=== PATIENT | female | born 1955 | race Caucasian/White ===

== ENCOUNTER 2017-02-13 14:51 | Inpatient (IN) | payer MEDICARE, OTHER ==
--- NOTE | ~2017-02-13 | CN ---
Consultation Report [facility] [address] [place]. [address] NAME: FELICIATS REAGAN : 55 STATUS : ADM IN PAT#: [id number] AGE: 61 ADM/REG DATE : 02/13/17 MR#: [id number] REPORT SERV DATE: 02/14/17 DICTATED BY: ISAIAS DENNIS DATE: 02/14/17 REPORT STATUS : Draft TRANSCRIBED BY: MODL DATE: 02/14/17 CONSULTATION NOTE DATE OF CONSULTATION: 02/14/2017 CHIEF COMPLAINT: Dyspnea. HISTORY OF PRESENT ILLNESS: Mrs. Felicitas Reagan is a morbidly obese 61-year-old white female with a past medical history significant for valvular heart disease, status post AVR- MVR, severe restrictive lung disease, and clinical asthma, who presents to [facility]'s Emergency Room with complaints of dyspnea. It should be noted that, Mrs. Reagan was hospitalized as recently as November of this year when she was seen by our Pulmonary Service. The patient has had a difficult course in the short interim. Mrs. Reagan is very familiar to our pulmonary team. She is currently being followed by Dr. Pérez Porras for outpatient pulmonary needs. She was seen as recently as 01/24/2017 as a followup from her recent hospitalization. During that time, she was doing fairly well on her chronic oxygen supplementation at 4 L. She was compliant with her asthma medications, which included albuterol, montelukast, and Symbicort of which she is compliant. The patient did have a previous assessment for obstructive sleep apnea, which did suggest nocturnal hypoxemia, but no clear indication of obstructive sleep apnea. There was a concern for obesity hypoventilation during this study. The patient describes herself as a never smoker. She describes her exercise tolerance as being exceedingly limited. She is only able to ambulate around her home before experiencing some degree of shortness of breath. Again, Mrs. Reagan was seen in November of this year by our pulmonary team. There was a concern for pulmonary hypertension, given some findings on echocardiogram. Right-sided pressures are estimated to be in the 30s, was later found that she had atrial fibrillation at this time and eventually underwent cardioversion. She did eventually transitioned home after her condition improved. More recently, she has become more short of breath even at rest. She occasionally checks her on oxygen and was noted to be in the high 70s with ambulation. This became concerning enough that she presented to [facility]'s Emergency Room. Upon arrival, she was found to be normotensive as well as afebrile. Her oxygen was 98% on 4 L. She did undergo some blood work, which demonstrated a BNP of 227.2. White blood cell count was 9300. She did have a chest x-ray, which suggested maybe some degree of pulmonary edema. The patient did receive some diuretics. She has also been assessed by Cardiology. Given that there is some concern with her dyspnea being multifactorial, she has been referred to the Pulmonary Service for further assessment. Currently, the patient is on her baseline 4 L with an oxygenation of 98%. She denies any dyspnea at rest. She does state with any exertion that she does have worsening dyspnea. She has not been checking her oxygenation sats when she does ambulate within the room. She Consultation Report [facility] [address] [facility] [place]. [address] NAME: FELICITAS REAGAN : 55 STATUS : ADM IN [facility]#: [id number] AGE: 61 ADM/REG DATE : 02/13/17 MR#: [id number] REPORT SERV DATE: 02/14/17 DICTATED BY: ISAIAS DENNIS DATE: 02/14/17 REPORT STATUS : Draft TRANSCRIBED BY: BASSAM DATE: 02/14/17 is not wheezing today. She is not coughing nor producing any purulent sputum. She has had pneumonia in the past. She does have known severe restrictive lung disease as well as clinical asthma. The patient does have extensive cardiac disease including valvular disease, for which she has undergone surgical repair. She does have known dyslipidemia. She currently denies any murmurs, angina, or palpitations. In regard to constitutional symptoms, she has had no fever, chills, nausea, vomiting, chest pain, abdominal pain. She has no worsening lower extremity edema. PAST MEDICAL HISTORY: 1. Coronary artery disease, status post bypass. 2. Valvular heart disease, status post aortic and mitral valve replacement. 3. Diabetes mellitus. 4. Clinical asthma. 5. Dyslipidemia. 6. DVT, currently on Xarelto. 7. Chronic venous stasis. 8. Hypothyroidism, on replacement therapy. 9. Morbid obesity. 10.Mild pulmonary hypertension. PAST SURGICAL HISTORY: 1. Coronary artery bypass graft surgery. 2. Aortic and mitral valve replacement. 3. Left rotator cuff surgery. 4. Thyroidectomy. 5. Left breast biopsy. FAMILY HISTORY: The patient denies a family history of lung disease. SOCIAL HISTORY: The patient is . She has one child, who is in good health. She previously worked in education. She denies any recent exposures to dust, silica, or asbestos. TOBACCO/ALCOHOL: As previously mentioned, the patient describes herself as a never smoker. MEDICATIONS: 1. Tylenol 325 mg. 2. DuoNebs. 3. Xanax 0.5 mg. 4. Atorvastatin 80 mg. 5. Symbicort. 6. Bumex 2 mg. Consultation Report [address] [place]. [address] NAME: FELICITAS REAGAN : 55 STATUS : ADM IN [facility]#: [id number] AGE: 61 ADM/REG DATE : 02/13/17 MR#: [id number] REPORT SERV DATE: 02/14/17 DICTATED BY: ISAIAS DENNIS DATE: 02/14/17 REPORT STATUS : Draft TRANSCRIBED BY: BASSAM DATE: 02/14/17 7. Fluoxetine 40 mg. 8. Insulin. 9. Levothyroxine 50 mcg. 10.Mirabegron 50 mg. 11.Montelukast 10 mg. 12.Pramipexole 1 mg. 13.Promethazine 25 mg. 14.Rivaroxaban 20 mg. 15.Sotalol 80 mg. 16.Spironolactone 25 mg. ALLERGIES: PENICILLIN. SHE HAS NUMEROUS ADVERSE REACTIONS NOTATED IN THE CHART. REVIEW OF SYSTEMS: A complete review of systems was performed with pertinent positives and negatives contained within the body of the HPI. PHYSICAL EXAMINATION: VITAL SIGNS: Blood pressure is 110/54, heart rate is 55, T-max is 98.5, respiratory rate is 18, SpO2 is 98% on 4 L. GENERAL: The patient is a pleasant, well-nourished/well-developed female, who is not currently exhibiting any signs of acute distress. The patient is morbidly obese. Skin: Skin with appropriate texture and turgor. No rashes, lesions, or ulcers. Nails are clear without cyanosis or clubbing. HEENT: Head: Skull is normocephalic/atraumatic. Facies symmetric. No masses or lesions. Eyes: Sclera anicteric, conjunctiva pink without exudates. Extra ocular movements intact. Pupils are equal, round, reactive to light. Ears: Auricles and tragus without pain to palpation. Hearing is grossly intact. Nose: Bilateral nasal patency. Sinuses without tenderness upon palpation. Throat: Complete dentition in good repair. Lips, oral mucosa, tongue, palate, and pharynx pink and moist without lesions. Uvula rises equally on phonation. Tongue midline without deviation. Mallampati class 3-4. NECK: Neck supple. Trachea midline. No cervical lymphadenopathy appreciated. Significant redundant tissue. THORAX/LUNGS: Thorax is symmetric with equal chest rise. Very diminished throughout. No rales, wheezes, rhonchi. CARDIOVASCULAR: Regular rate and rhythm. No murmurs, rubs, or gallops. Anterior chest without thrills, heaves, or lifts. ABDOMEN: Soft. Non-distended, non-tender. Active bowel sounds in all four quadrants. No hepatosplenomegaly noted. PERIPHERAL VASCULAR: No edema. No varicosities, open sores, ulcerations, or phlebitis. 2+ pulses in radial and dorsalis pedis. Chronic stasis changes appreciated. MUSCULOSKELETAL: Full AROM and PROM in all joints. No evidence of erythema, deformity, or crepitus. NEUROLOGIC: CN II - XII grossly intact. Good muscle bulk and tone bilaterally. Strength Consultation Report [address] [place]. [address] NAME: FELICITAS REAGAN : 55 STATUS : ADM IN [facility]#: [id number] AGE: 61 ADM/REG DATE : 02/13/17 MR#: [id number] REPORT SERV DATE: 02/14/17 DICTATED BY: ISAIAS DENNIS DATE: 02/14/17 REPORT STATUS : Draft TRANSCRIBED BY: MODL DATE: 02/14/17 5/5 throughout. PSYCHIATRIC: Patient demonstrates good judgment and insight. Pt is A&O x 3. ACCESSARY DATA: Reveals white blood cell count of 9300, hemoglobin and hematocrit 12.4 and 38.3, procalcitonin is negative at 0.05. BNP is 268.6. Chest x-ray suggests some degree of pulmonary edema. IMPRESSION: 1. Dyspnea-multifactorial. 2. Chronic hypoxemic respiratory failure. 3. Severe restrictive lung disease. 4. Clinical asthma. 5. Mild volume overload. 6. Valvular heart disease, status post aortic valve and mitral valve replacement. 7. Mild pulmonary hypertension. PLAN: 1. In regard to the patient's dyspnea, this is likely secondary to her morbid obesity, overall deconditioning, severe restrictive lung disease, asthma, mild volume overload, and less likely very mild pulmonary hypertension. In regard to the patient's oxygenation, she is now currently at baseline. 2. In regard to the patient's asthma, we will continue her home medications as there is no clear indication that she is having an exacerbation. 3. The aforementioned impression and plan has been discussed with Dr. Harris, who will follow further recommendations. We thank you for this consult and look forward to participating in the care of Mrs. Felicitas Reagan. GBS/MODL Isaias Dennis PA-C / [id number] CC: MD Jenny Soto
--- NOTE | ~2017-02-13 | PRECARD ---
H&P [facility] [address] [place]. [address] NAME: FELICITAS REAGAN : 55 STATUS : REG ER PAT#: [id number] AGE: 61 ADM/REG DATE : 02/13/17 MR#: [id number] REPORT SERV DATE: 02/13/17 DICTATED BY: DEJON PYLE DATE: 02/13/17 REPORT STATUS : Draft TRANSCRIBED BY: BASSAM DATE: 02/13/17 DATE OF ADMISSION: 02/13/2017 Ms. Felicitas Reagan is a 61-year-old woman who comes to the emergency room with a three-to- four day history of dyspnea. Cardiology is consulted because of a troponin level of 0.08. Ms. Reagan has had bioprosthetic aortic valve replacement and mitral valve replacement in April 2013. She also had resection of a subaortic membrane. At that time, she had a single vein graft placed to the PDA. Her history is also remarkable for diabetes, DVT, hypertension, hyperlipidemia, and paroxysmal atrial fibrillation. She had been on sotalol 80 b.i.d. for the atrial fibrillation. She did well until the last 3-4 days. In the last 3 to 4 days, she describes decreased exercise tolerance, orthopnea, and PND. She describes leg edema. She actually denies any chest pain. She has had no bleeding. She has had no stroke or stroke-like symptoms. She came to the emergency room with these symptoms. Heart rate has been 40 to 50. Her systolic pressure has been about 120. PAST MEDICAL HISTORY: Diabetes, DVT, mixed, hyperlipidemia, hypertension, depression, obesity, paroxysmal atrial fibrillation, aortic, mitral valve replacement. Bypass single- vessel. Vein graft to the right. SOCIAL HISTORY: Denies alcohol and tobacco. FAMILY HISTORY: Noncontributory. REVIEW OF SYSTEMS: Complete review of systems obtained, pertinent negative and unremarkable except as noted above. All systems addressed. PHYSICAL EXAMINATION: VITAL SIGNS: Blood pressure is about 125/70, heart rate about 50, and temperature 97.6. GENERAL: She appears comfortable, flat, in no distress, fully alert and oriented. HEENT: No xanthelasma; lips without cyanosis LUNGS: Clear to auscultation, no wheezes, rales or rhonchi; good breath sounds. COR: No JVD or hepatojugular reflux, no murmurs, rubs or gallops, impulse mid clavicular line without carotid or abdominal bruits; normal S1 and S2. ABDOMEN: Bowel sounds positive, normal activity, without tenderness, masses or hepatosplenomegaly. EXTREMITIES: She has trace edema. SKIN: Normal turgor. MUSCULOSKELETAL: Normal muscle strength, without kyphosis/scoliosis. H&P [address] [address] NAME: FELCIITAS REAGAN : 55 STATUS : REG ER PAT#: [id number] AGE: 61 ADM/REG DATE : 02/13/17 MR#: [id number] REPORT SERV DATE: 02/13/17 DICTATED BY: DEJON PYLE DATE: 02/13/17 REPORT STATUS : Draft TRANSCRIBED BY: BASSAM DATE: 02/13/17 NEURO/PSYCH: Alert and oriented times 4, no apparent anxiety or depression. DATA: Telemetry demonstrates sinus bradycardia, occasional PVCs. Heart rate about 45 to 50. White count 9.3, hematocrit 38.3, and platelet count is 117,000. BUN of 16, creatinine 1.02. Her troponin 0.08. BNP is 227. EKG, sinus bradycardia at 45 with possible attempts at left anterior fascicular block, possible LVH. ASSESSMENT: Ms. Felicitas Reagan is a 61-year-old woman with history of diabetes, hypertension, prior bioprosthetic mitral and aortic valve replacement, with single vein graft to the PDA. She has history of atrial fibrillation. She is currently in sinus rhythm, with sinus bradycardia. Her heart rate is low, she has had no bradycardia. Her troponin level is minimally elevated at 0.08. Her BNP level is also elevated, though only 227. We are still collecting her medication list. Her outpatient records indicate she had been on sotalol 80 b.i.d. I will initially hold the sotalol, we may need to stop that completely versus decrease the dose to 80 b.i.d. I will review these medications once they are available and consider adjusting her other medications. PLAN: 1. Serial biomarkers, doubt acute coronary syndrome. 2. Hold the sotalol for now. 3. Continue anticoagulation, her INR is 2.6. I would discontinue heparin, I do not think she has had an acute coronary syndrome, her troponin was only 0.08. 4. Further recommendations depending upon her clinical course. TAPAN/BASSAM Dejon Pyle M.D. / [id number] CC: LYNDSEY PACHECO
--- NOTE | ~2017-02-13 | EEG ---
Electroencephalogram [facility] [address] [facility] [place]. [address] NAME: LISA REAGAN : 55 STATUS : ADM IN PAT#: [id number] AGE: 61 ADM/REG DATE : 02/13/17 MR#: [id number] REPORT SERV DATE: 02/17/17 DICTATED BY: DATE: REPORT STATUS : Draft TRANSCRIBED BY: MODL DATE: 02/17/17 NEUROLOGY EEG REPORT CLINICAL INDICATIONS: Encephalopathy and confusion. DESCRIPTION: This EEG was performed using 10/20 electrode placement system. During the EEG study, symmetric background activity was noted with predominant occipital rhythm of roughly 10 hertz. Photic stimulation was performed with appropriate driving response. Hyperventilation was not performed due to the patient's underlying respiratory issues. The patient achieved drowsy as well as stage I and II sleep with appropriate sleep spindles. No focal abnormalities, seizure activity, or seizure discharge was noted during the EEG evaluation. INTERPRETATION: This EEG study obtained during awake, drowsy as well as stage I and II sleep may be considered within normal limits. No focal abnormalities, seizure activity, or seizure discharge was otherwise seen clinical correlation is recommended. [facility]/MODL Ryland Maciel MD / [id number] CC: Solitario De La Torre MD
--- NOTE | ~2017-02-13 | DS ---
Discharge Summary [place] [address] [place]. [address] NAME: LISA REAGAN : 55 STATUS : DIS IN PAT#: [id number] AGE: 61 ADM/REG DATE : 02/13/17 MR#: [id number] REPORT SERV DATE: 02/20/17 DICTATED BY: WENDY MELO DATE: 02/19/17 REPORT STATUS : Draft TRANSCRIBED BY: MODOrlin DATE: 02/19/17 ADMISSION DATE: 02/13/2017 DISCHARGE DATE: 02/19/2017 CONSULTING PHYSICIANS: 1. Ryland Maciel MD and Timothy Vazquez MD, for Neurology. 2. Rehan Muniz M.D., for Cardiology. 3. Pérez Porras M.D. for Pulmonary. FINAL DIAGNOSES: 1. Acute on chronic diastolic congestive heart failure, status post acute respiratory failure. 2. Peripheral arterial disease with history of coronary artery bypass grafting. 3. Status post pulmonary edema. 4. History of asthma. 5. Obstructive sleep apnea. 6. Restrictive lung disease. 7. Status post encephalopathy with visual hallucinations. 8. History of DVT. 9. Aortic and mitral valve replacement. 10.Atrial fibrillation with history of bradycardia. 11.Diabetes. 12.Hypothyroidism. 13.Anemia of chronic disease. 14.Anxiety and depression. DIAGNOSTIC EXAMS: 1. EEG showing normal findings, no focal abnormalities, seizure activity, or seizure discharge. 2. Chest x-ray, cardiac surgical changes, diffuse bilateral interstitial opacity, likely edema, minimal bibasilar atelectasis, and/or pleural fluid. 3. Repeat chest x-ray showing continued venous congestion and mild diffuse interstitial edema with bilateral perihilar atelectasis. Findings are similar to the prior examination. Stable mild enlargement of the cardiac silhouette with evidence of previous coronary artery bypass grafting and heart valve replacement. 4. CAT scan of the brain, mild cortical volume loss and findings compatible with mild chronic deep white matter ischemic change. No acute intracranial abnormality. Mild right ethmoid sinus disease. 5. CTA of the brain, 20% to 30% stenosis, origin left internal carotid artery. Calcific plaque at the origin of the left vertebral artery. Otherwise, the carotid and vertebral arteries appear widely patent. Heavy atherosclerotic calcification in the intracranial portion of the internal carotid arteries without significant stenosis. No high-grade stenosis or large vessel occlusion. Mild cortical volume loss compatible with mild chronic deep white matter ischemic change. Venous congestion and pulmonary edema compatible with patient's known congestive failure changes seen on recent chest radiograph. Discharge Summary [place] [address] [place]. [address] NAME: LISA REAGAN : 55 STATUS : DIS IN PAT#: [id number] AGE: 61 ADM/REG DATE : 02/13/17 MR#: [id number] REPORT SERV DATE: 02/20/17 DICTATED BY: WENDY MELO DATE: 02/19/17 REPORT STATUS : Draft TRANSCRIBED BY: BASSAM DATE: 02/19/17 6. MRI of the brain, normal findings. HOSPITAL COURSE: Please refer to the H and P done by Dr. Melgoza dated on 02/12/2017. Briefly, this is a 61-year-old female, who comes in for shortness of breath. The patient has an extensive past medical history including CAD with CABG, aortic and mitral valve repair and replacement, asthma, restrictive lung disease, hypertension, diastolic congestive heart failure, diabetes, and DVTs. The patient had her sotalol recently increase, and she comes in to the emergency room with shortness of breath and low heart rate. Chest x-ray shows mild congestive heart failure changes, she was given her regular diuretics, and continued her sotalol. She remained bradycardic, but she was able to diurese. The creatinine, however, increased. We got Cardiology involved. They are assuming that the patient might not be very compliant with her diuretics as with the same dose her creatinine increased. They lowered down the sotalol and signed off. The patient's heart rate went up with the lowering of the sotalol, and she continued to diurese with decrease in the Bumex; she is now taking only 1 mg instead of 2 mg, and the creatinine actually improved from 1.4 down to 1.23 on discharge. Meanwhile, we got Pulmonary involved. From their point of view, the patient is actually on her baseline, they did not change the medication. However, while she was here, she had an episode of encephalopathy with visual hallucinations. We got Neurology involved. We did the above tests, and we found no evidence of organic brain disease. This could be secondary to the steroids or other medications, however, for the last 24 hours, she does not have any visual hallucinations anymore and Neurology signed off. She actually has a followup with Dr. Lance on 03/17/2017. The patient's vitals remained stable. She is wanting to go home, so we will be discharging her with the above diagnosis. She will be following up with [facility] in one to two weeks. Follow up with [facility], Dr. Lance, on 03/17/2017. Follow up with [facility], Dr. Ray Muniz, in three to four weeks and Pulmonary, Dr. Porras in 1 to 2 months. She will be on the following medications: Xanax 0.5 mg at bedtime, Lipitor 80 mg at bedtime, Bumex down to 1 mg a day, Prozac 40 mg twice a day, Lantus 50 units at bedtime, insulin aspart per sliding scale, Synthroid 50 mcg a day, Singulair 10 mg at bedtime, Myrbetriq 50 mg a day, Mirapex 1 mg at bedtime, Metamucil 1 packet a day, Xarelto 20 mg at bedtime, Betapace down to 40 mg twice, Aldactone 25 mg twice a day, DuoNebs inhaled every six hours p.r.n., ProAir two puffs four times a day, Symbicort 160/4.5 two puffs twice a day, Phenergan 25 mg a day p.r.n., Tylenol p.r.n., and probiotic ad josé. This has been explained to the patient. I also reiterated as per Neurology recommendations that she cannot drive. I explained that to her at length, she said it is going to be difficult as she is the only one who drives in her home, so I have to tell her that she has friends and family which she needs to rely on until she follows up with Dr. Lance and clears her from the Neurology point of view. TIME SPENT: 35 minutes. PRAVIN/BASSAM Discharge Summary [address] [place]. [address] NAME: LISA REAGAN : 55 STATUS : DIS IN [facility]#: [id number] AGE: 61 ADM/REG DATE : 02/13/17 MR#: [id number] REPORT SERV DATE: 02/20/17 DICTATED BY: WENDY MELO DATE: 02/19/17 REPORT STATUS : Draft TRANSCRIBED BY: BASSAM DATE: 02/19/17 Wendy Melo M.D. / [id number] CC: Trina Valero
--- NOTE | ~2017-02-13 | HP ---
History And Physical [place] [address] [facility] [place]. [address] NAME: LISA REAGAN : 55 STATUS : ADM IN [facility]#: [id number] AGE: 61 ADM/REG DATE : 02/13/17 MR#: [id number] REPORT SERV DATE: 02/13/17 DICTATED BY: TAMMY BURGER DATE: 02/13/17 REPORT STATUS : Draft TRANSCRIBED BY: MODL DATE: 02/13/17 DATE OF ADMISSION: 02/13/2017 CHIEF COMPLAINT: Bradycardia, shortness of breath, and cough. HISTORY OF PRESENT ILLNESS: The patient is a 61-year-old female. She has an extensive past medical history. It includes coronary artery disease, status post CABG; aortic and mitral valve repair and replacement; asthma; diastolic CHF; hypertension; diabetes; history of DVTs, on chronic anticoagulation; atrial fib; hypothyroidism; iron, B12, and folate deficiencies with chronic anemia. She presents today with low heart rate and shortness of breath. The patient states she was approximately three weeks ago at her steelworker's office, apparently there was some elevated heart rate noted and her sotalol was increased from 40 b.i.d. to 80 b.i.d. She states over the past 24 hours or so, she has noted heart rates in the 30s and 40s. She contacted her steelworker and was sent to the emergency room for evaluation. In addition, she has noticed some shortness of breath and nonproductive cough, which she has had in the past with her previous heart problems. She did not have any accompanying purulent sputum, fever, chest pain, or palpitations to accompany this. On evaluation in the emergency department, she was noted to be bradycardic. She was noted to have a mild troponin bump of 0.08. Cardiology is already consulted on the patient. She is being admitted for further treatment of her bradycardia and shortness of breath. PAST MEDICAL HISTORY: As covered above. PAST SURGICAL HISTORY: She has had a CABG, valve replacement, rotator cuff, thyroidectomy, and breast biopsy. CURRENT MEDICATIONS: Tylenol 325 one to two per day, DuoNeb inhaler, albuterol inhaler, Xanax 0.5 at bedtime, Lipitor 80, Symbicort 160/4.5 two puffs twice a day, Bumex 2 mg, Prozac 40 b.i.d., NovoLog flex pen, Lantus 44 at bedtime, Synthroid 50, Myrbetriq 50, probiotic, Singulair 10, Mirapex 1 at bedtime, Phenergan 25, Metamucil, Xarelto 20, Betapace 80 b.i.d., and Aldactone 25 b.i.d. ALLERGIES: TO PENICILLIN, COUMADIN, HEPARIN ANALOGS, IRON, B12, FOLIC ACID, ADHESIVE TAPE, AND LEVAQUIN. FAMILY HISTORY: Father of pneumonia and Parkinson disease. Mother shortly after she had heart problems. SOCIAL HISTORY: Nondrinker, nonsmoker. REVIEW OF SYSTEMS: HEENT: Occasional headache. CARDIOVASCULAR: As covered in HPI. PULMONARY: As covered in HPI. GI: No nausea and vomiting. : No frequency, urgency, or dysuria. History And Physical [address] [address] NAME: LISA REAGAN : 55 STATUS : ADM IN [facility]#: [id number] AGE: 61 ADM/REG DATE : 02/13/17 MR#: [id number] REPORT SERV DATE: 02/13/17 DICTATED BY: TAMMY BURGER DATE: 02/13/17 REPORT STATUS : Draft TRANSCRIBED BY: BASSAM DATE: 02/13/17 EXTREMITIES: Slight edema. No pain. Otherwise 14-point review of systems is negative. PHYSICAL EXAMINATION: VITAL SIGNS: Sat 98% on 4 L, BP 133/62, pulse 54, temp 97.6, respirations 16. GENERAL: She is awake, alert and oriented. No acute distress. HEENT: Normocephalic, atraumatic. Sclerae nonicteric. HEART: Bradycardic, irregular. LUNGS: Show rales bilaterally. ABDOMEN: Obese, benign. EXTREMITIES: Trace to 1+ edema. LABORATORY DATA: Sodium 142, potassium 4.5, chloride 104, CO2 of 27, BUN and creatinine are 16 and 1.02, glucose 125, total bilirubin 1.8. Troponin 0.08. BNP 227.2. White count 9.3, H and H 12.4 and 38.3, platelets 117. Chest x-ray was read as pulmonary edema. EKG, sinus tashi at a rate of 45. No acute ST changes. ASSESSMENT: The patient has a complicated medical history. Presented with bradycardia, felt secondary to increased dose of sotalol; shortness of breath and cough. Mild failure versus pulmonary problem. PLAN: The patient has been admitted. Cardiology is already consulted, has stopped her heparin drip, held her sotalol. Trend her enzymes. We will check a procalcitonin, but doubt an infection. Continue reasonable diuresis. Further recommendations pending above. TLF/MODL Tammy Burger M.D. / [id number] CC: Jenny Luo
--- NOTE | ~2017-02-13 | CN ---
Consultation Report [facility] [address] [place]. [address] NAME: LISA REAGAN : 55 STATUS : ADM IN PAT#: [id number] AGE: 61 ADM/REG DATE : 02/13/17 MR#: [id number] REPORT SERV DATE: 02/16/17 DICTATED BY: DATE: REPORT STATUS : Draft TRANSCRIBED BY: MODL DATE: 02/16/17 NEUROLOGY CONSULTATION DATE OF CONSULTATION: 02/16/2017 REASON FOR CONSULT: Encephalopathy. HISTORY OF PRESENT ILLNESS: This is a 61-year-old female who presented to [facility] on 02/13/2017 secondary to increased shortness of breath as well as bradycardia. The patient was in the hospital for evaluation and treatment when the patient was noted to have acute encephalopathy episodes on 02/15/2017 where the patient reports that she was sitting in the hospital bed watching TV when the patient suddenly experienced strange sensation followed by difficulty moving all four extremities and encephalopathy with the patient's reports the patient became very confused. The patient's symptom lasted at least two hours with the patient slowly became more oriented and following commands, although the patient still complains of difficulty moving extremities today with the patient reports feel like there are bricks on the bilateral feet as well as bricks over the face making her feel numbness in the face. The patient also reports sluggish in thinking, although is more oriented this morning according to the patient as well as . The patient denies similar events in the past; however, the patient's does complain that subjective memory difficulties at home at baseline. The patient does have a history of open heart surgery in 2012, reportedly was in a coma for close to a month. Afterwards, she was noted to have extended rehabilitation with the patient afterwards having residual difficulties with her balance as well as some difficulties with her memory. In addition, the patient has been under a lot of psychosocial stress consisting of financial stress as well as loved ones as well as herself having multiple medical issues. The patient's medication has been adjusted during the hospital stay with the patient started on steroids by Pulmonary on 02/15/2017; however, the patient does have a history of steroid usage in the past for shortness of breath without significant encephalopathy development. The patient during the hospitalization was not noted to have any significant fever; however, the patient does complain of cough and shallow breathing during the hospital stay. No other significant problem was otherwise noted by the patient. HISTORY OF PRESENT ILLNESS: At the time of evaluation, the patient's past medical history consists of coronary artery disease, coronary artery bypass surgery, aortic mitral valve repair and replacement, asthma, diastolic versus congestive heart failure, hypertension, diabetes, history of DVTs on chronic anticoagulation, atrial fibrillation, hypothyroidism, with the patient also noted to have chronic anemia. ALLERGIES: THE PATIENT WAS NOTED TO HAVE AN ALLERGY TO PENICILLIN, COUMADIN, HEPARIN ANALOGUES, IRON, B12, FOLIC ACID, ADHESIVE TAPE, AND LEVAQUIN. FAMILY HISTORY: Significant for pneumonia, Parkinson disease, and heart disease. Consultation Report [place] [address] [facility] [place]. [address] NAME: LISA REAGAN : 55 STATUS : ADM IN [facility]#: [id number] AGE: 61 ADM/REG DATE : 02/13/17 MR#: [id number] REPORT SERV DATE: 02/16/17 DICTATED BY: DATE: REPORT STATUS : Draft TRANSCRIBED BY: MODOrlin DATE: 02/16/17 SOCIAL HISTORY: Denies current tobacco, alcohol, or recreational drug usage. REVIEW OF SYSTEMS: Otherwise negative except for those mentioned in the HPI. MEDICATIONS: At the time of evaluation the patient was noted to have medications consist of Aldactone, Betapace, Brovana inhaler, Bumex, DuoNeb, Florastor, Levemir, Lipitor, Mirapex, Myrbetriq, NovoLog, Prozac, Pulmicort, Singulair, Solu-Medrol, Synthroid, Xanax, and Xarelto. PHYSICAL EXAMINATION: VITAL SIGNS: Overnight, the patient was noted to have vital signs with T-max of 98.0, heart rate of 57 to 93, respiration of 18 to 20, and blood pressure of 97 to 125 over 51 to 67. GENERAL: The patient is well developed, well nourished, in no acute distress. CARDIOVASCULAR: Irregularly irregular heart rates, otherwise was noted to have no carotid bruits auscultated. PULMONARY: Clear to auscultation bilaterally. NEUROLOGICAL: Generally, the patient is alert and oriented to person, place, year, as well as the month. Intact registration and recall. Psychomotor retardation was noted at the time of evaluation, but follows simple and two-step commands. Cranial nerves 2 through 12: Pupils are equal, round, and reactive to light. Extraocular eye movement was noted to be intact with intact blink to threat response. Reports symmetrical facial sensation bilaterally, but reports bilateral decreased sensation in the cranial nerve of V2 and V3 distribution compared to V1 distribution. Symmetrical facial expression. Midline tongue. Normal palatal movement. The patient was noted to have minimal decreased hearing in bilateral ears. Otherwise, she was noted to have 4/5 bilateral upper extremity 4-/5 bilateral lower extremity strength at the time of evaluation. Normal [id number] examination without ataxia. No asterixis or myoclonus was observed during the evaluation. Reported to have decreased sensation in the right upper extremity as well as left lower extremity at the time of evaluation. Deep tendon reflex was 3+ in bilateral upper extremities, 4+ in bilateral lower extremities with crossed adductor sign. Gait was not evaluated. The patient at baseline ambulates with a walker for short distances and uses a wheelchair for longer distances. LABORATORY STUDIES: Demonstrated white blood cell count of 9.4, hemoglobin of 13.8, hematocrit of 41.4, and platelet count of 130. Chemistry panel: Sodium 134, potassium of 4.6, chloride 100, bicarb 26, BUN of 24, creatinine 1.10, glucose of 321. Calcium of 9.2 and magnesium of 2.2. The patient does have CT angiogram of the head with the patient's CT demonstrated no acute process. CTA of the head otherwise demonstrated 20% to 30% stenosis in the left internal carotid artery. Arthrosclerotic calcification in the intracranial portion of the internal carotid artery. However, no evidence of high-grade stenosis or large vessel occlusion was noted. Pulmonary edema was seen during the CT angiogram. Consultation Report [place] [address] [facility] [place]. [address] NAME: LISA REAGAN : 55 STATUS : ADM IN [facility]#: [id number] AGE: 61 ADM/REG DATE : 02/13/17 MR#: [id number] REPORT SERV DATE: 02/16/17 DICTATED BY: DATE: REPORT STATUS : Draft TRANSCRIBED BY: MODL DATE: 02/16/17 IMPRESSION: Encephalopathy, symptom improving. The patient does have slow psychomotor function on examination, question of complex partial seizure versus psychogenic or anxiety attack. We will continue Xarelto. We will obtain MRI of the brain if the patient's respiratory status is stable. We will obtain EEG as well as laboratory study. RECOMMENDATIONS: 1. MRI of the brain without contrast. Therefore, respiratory status is stable. 2. We will continue Xarelto. 3. EEG. 4. Ammonia, TSH, free T4, vitamin B12, and folate. 5. We will obtain EEG for evaluation. 6. We will obtain UA for evaluation. [facility]/MODL Ryland Maciel MD / [id number] CC: MD TARA Soto GENNA LEETA
[~2017-02-13 14:51] MED LIST: ACCUNEB INH; ACET500CAP PO; ACTOS30 PO; ADVAIR250 INH; ALBUTEROL INH; ALBUTEROL5 INH; ALLEGRA180 PO; AMARYL4 PO; ANUSOL HC SUPP1 SUPP PR; ASA5GR PO; ASAB PO; ASABAYER PO; ATROVENTUD INH; ATV.5 PO; AUG875 PO; B COMPLEX SL; B-12 IJ; B-12 INJECTION; B121000P IM; BACDS PO; BACTROINT; BETADINE TOP; BETAPACE80 PO; BI EST PO; BIAXIN5 PO; BIEST SL; BUM1 PO; BUM2 PO; C5 PO; CARDCD240 PO; CARDCD300 PO; CARDIZEM LA300 MG PO; CELEBREX2 PO; CENTRUM TAB1 TAB PO; COREG3 PO; COREG6 PO; COUMADIN; CRANASSURE OR; CRANBERRY PLUS C; CRANBERRY PLUS C PO; CRANBERRY PO; DELTADOSE PO; DEMA100 PO; DEMA20 PO; DETROLLA4 PO; DSS PO; DUONEB INH; DURICEF PO; ELDERTONIC PO; ENABLEX15 PO; FLORASTOR250 MG PO; FLUCON150 PO; FLUCON2 PO; FOLIC PO; FORTAMET500 MG PO; GELNIQUE; GELNIQUE PO; GELNIQUE T; GGDM5ML PO; GLUCOPHAGE1000 MG PO; GLUCOPHXR PO; GLUCOTROL5 PO; GLUCPH PO; HYDROCODONE PO; IRON OR; IRON PO; JANUVIA100 MG PO; KDUR20 PO; KLOR-CON M1010 MEQ PO; KLOR-CON M2020 MEQ PO; L20 PO; L40 PO; LANTUS SC; LEVAQUIN; LEVAQUIN750 MG PO; LEVEMIR SC; LEVOTHROID50 MCG PO; LEVOTHYROXIN50 MCG PO; LEVOXYL50 MCG PO; LIPITOR80 MG PO; LORTAB 5 PO; MAGOX4 PO; METAMUCIL CAN7 OZ PO; METANX PO; MIRALAXPKT PO; MIRAPEX PO; MIRAPEX1 MG PO; MIRAPEX1.5 MG PO; MIRAPEX5 PO; MONODOX100 MG PO; MONUROL PO; MULTIPLE VIT PO; MULTIVITAMI1 PO; MVI PO; MYRBETRIQ50 MG PO; NASONEX NAS; NEUR100 PO; NEUR300 PO; NEXIUM40 PO; NORCO1 TA2 PO; NORCO1 TAB PO; NOVOLOG SC; NOVOPENMIX SC; OXYBUTYNIN TOP; P10 PO; PERCOCET1 TA2 PO; PRAVACHOL40 MG PO; PRIN5 PO; PROAIR HFA INH; PROCTOZONE1 CRE PR; PROGEST PO; PROGEST SL; PROVENT20 INH; PROVENTSOL INH; PROVHFA INH; PROZ10 PO; PROZAC PO; PROZAC40 MG PO; ROCEPH IM; ROZEREM8 MG PO; SANCTURA XR60 MG PO; SENTAB PO; SINGULAIR1 PO; SLIDINGSCALE INSULIN SQ; SPIRO25 PO; SPIRO50 PO; SYMBICORT; SYMBICORT 160/41 INH INH; SYMBICORT INH; SYN.05 PO; Symbicort; TEARS NATURA OPH; V120 PO; V180SR PO; VENTOLIN HFA INH; VERELAN180 MG PO; VESICARE5 PO; VICTOZA18 MG/3 ML SC; VIT C PO; VITAMIN B PO; VITAMIN B-122500 MCG SL; VITAMIN D3; VITAMIN D31000 UNIT PO; X25 PO; X5 PO; XARELTO20 MG PO; XOPENEX1.25 MG/1 IN; XOPENEX1.25 MG/3 INH; Z-PAK PO; Z5 PO; ZITHROMAX500 MG PO; ZOCOR40 PO; ZOCOR80 MG PO; ZOFRAN4 PO; ZOL100 PO; ZOL50 PO; ZOLOFT25 MG PO; ZYRTEC ALLGY10 MG PO; [UNRECOGNIZED DRUG - CODE] IM; [UNRECOGNIZED DRUG - MIXTURE] PO; [UNRECOGNIZED DRUG - OTHER]; [UNRECOGNIZED DRUG - OTHER] PO; [UNRECOGNIZED DRUG - OTHER] SL; [UNRECOGNIZED DRUG - REMARK]; [UNRECOGNIZED DRUG - REMARK] IV; [UNRECOGNIZED DRUG - REMARK] IV
[2017-02-13 15:41] LABS: BASOPHILS 0.2 %; BASOPHILS ABSOLUTE 0.02 10/3/uL (0.0-0.16); EOSINOPHILS 2.2 %; HEMOGLOBIN 12.4 g/dL (12.0-16.0); IMMATURE GRANULOCYTES 0.4 %; IMMATURE GRANULOCYTES ABSOLUTE 0.04 10/3/uL (0.0-0.11); LYMPHOCYTES 10.4 %; LYMPHOCYTES ABSOLUTE 0.96 10/3/uL (0.67-4.30); MEAN CORPUS HGB CONC 32.4 g/dL (32.0-36.0); MEAN CORPUSCULAR HEMOGLOB 29.7 pg (26.0-34.0); MEAN PLATELET VOLUME 10.9 fL (9.2-13.0); MONOCYTES 8.6 %; NEUTROPHILS 78.2 %; NEUTROPHILS ABSOLUTE 7.23 10/3/uL (2.02-8.40); PLATELET COUNT 117 10/3/uL (150-400); RBC DISTRIBUTION WIDTH 14.5 % (12.0-16.0); RED CELL COUNT 4.18 10/6/uL (4.0-5.6); WHITE BLOOD CELLS 9.3 10/3/uL (4.5-10.5)
[2017-02-13 15:43] LABS: HEMATOCRIT 38.3 % (36.0-48.0); MANUAL DIFF NO %; MEAN CORPUSCULAR VOLUME 91.6 fL (80-100)
[2017-02-13 15:49] LABS: INTERNATIONAL NORMAL RATI 2.6 UNITS (-); PARTIAL THROMBO TIME 39.8 SEC (22.5-37.2); PROTIME (NOT ORD) 27.6 SEC (12.0-14.5)
[2017-02-13 15:58] LABS: ALBUMIN 3.2 G/DL (3.5-5.0); CALCIUM, SERUM 8.6 MG/DL (8.5-10.4); CHLORIDE, SERUM 107 MMOL/L (96-112); CO2 (CARBON DIOXIDE) 27 MMOL/L (24-34); CREATININE 1.02 MG/DL (0.55-1.02); GFR AFRICAN AMERICAN 69 ML/MIN (>=60); GFR NON AFRICAN AMERICAN 59 ML/MIN (>=60); POTASSIUM, SERUM 4.5 MMOL/L (3.5-5.3); SGOT(AST) 16 U/L (5-40); SGPT(ALT) 16 U/L (5-65); SODIUM, SERUM 142 MMOL/L (135-148); TOTAL BILIRUBIN 1.8 MG/DL (0-1.2); TOTAL PROTEIN 7.4 G/DL (6.0-8.5)
[2017-02-13 15:59] LABS: ALKALINE PHOSPHATASE 86 U/L (45-117); BUN (BLOOD UREA NITROGEN) 16 MG/DL (6-23); CHEST PAIN PROFILE TAT 0 Hrs 22 Mins; DIRECT BILIRUBIN 0.3 MG/DL (0.0-0.4); GLUCOSE, SERUM 125 MG/DL (60-99); INDIRECT BILIRUBIN(NOT ORDER) 1.5 MG/DL (0.1-0.9); TROPONIN I 0.08 NG/ML (<0.05)
[2017-02-13] MEDS ORDERED: DUONEB INH (17:11)
[2017-02-13] MEDS ORDERED: X5 PO (17:12)
[2017-02-13] MEDS ORDERED: PROAIR HFA INH (17:12)
[2017-02-13] MEDS ORDERED: LIPITOR80 MG PO (17:13)
[2017-02-13] MEDS ORDERED: PROZAC40 MG PO (17:14)
[2017-02-13] MEDS ORDERED: BUM2 PO (17:14)
[2017-02-13] MEDS ORDERED: SYN.05 PO (17:15)
[2017-02-13] MEDS ORDERED: LANTUS SC (17:15)
[2017-02-13] MEDS ORDERED: NOVOPEN SC (17:16)
[2017-02-13] MEDS ORDERED: SINGULAIR1 PO (17:16)
[2017-02-13] MEDS ORDERED: MYRBETRIQ50 MG PO (17:16)
[2017-02-13] MEDS ORDERED: BETAPACE80 PO (17:17)
[2017-02-13] MEDS ORDERED: MIRAPEX1 MG PO (17:17)
[2017-02-13] MEDS ORDERED: SPIRO25 PO (17:18)
[2017-02-13] MEDS ORDERED: SYMBICORT 160/41 INH INH (17:19)
[2017-02-13] MEDS ORDERED: XARELTO20 MG PO (17:19)
[2017-02-13] MEDS ORDERED: PR25 PO (17:21)
[2017-02-13] MEDS ORDERED: T PO (17:22)
[2017-02-13] MEDS ORDERED: METAMUCIL CAN7 OZ PO (17:22)
[2017-02-13] MEDS ORDERED: PROBIOTIC PO (17:23)
[2017-02-13 22:38] LABS: TROPONIN I 0.06 NG/ML (<0.05)
[2017-02-13 22:54] LABS: PROCALCITONIN <0.05 ng/mL (<0.5)
[2017-02-14 06:42] LABS: BUN (BLOOD UREA NITROGEN) 19 MG/DL (6-23); CALCIUM, SERUM 8.8 MG/DL (8.5-10.4); CHLORIDE, SERUM 106 MMOL/L (96-112); CO2 (CARBON DIOXIDE) 28 MMOL/L (24-34); CREATININE 1.07 MG/DL (0.55-1.02); GFR AFRICAN AMERICAN 65 ML/MIN (>=60); GFR NON AFRICAN AMERICAN 56 ML/MIN (>=60); SODIUM, SERUM 142 MMOL/L (135-148)
[2017-02-14 06:49] LABS: GLUCOSE, SERUM 74 MG/DL (60-99); TROPONIN I 0.07 NG/ML (<0.05)
[2017-02-15 07:04] LABS: BASOPHILS 0.3 %; BASOPHILS ABSOLUTE 0.02 10/3/uL (0.0-0.16); EOSINOPHILS ABSOLUTE 0.15 10/3/uL (0.0-0.53); HEMOGLOBIN 13.8 g/dL (12.0-16.0); IMMATURE GRANULOCYTES 0.5 %; IMMATURE GRANULOCYTES ABSOLUTE 0.04 10/3/uL (0.0-0.11); LYMPHOCYTES 11.2 %; LYMPHOCYTES ABSOLUTE 0.84 10/3/uL (0.67-4.30); MEAN CORPUS HGB CONC 32.4 g/dL (32.0-36.0); MEAN CORPUSCULAR HEMOGLOB 29.5 pg (26.0-34.0); MEAN PLATELET VOLUME 10.8 fL (9.2-13.0); MONOCYTES 9.1 %; MONOCYTES ABSOLUTE 0.68 10/3/uL (0.21-1.20); NEUTROPHILS 76.9 %; NEUTROPHILS ABSOLUTE 5.75 10/3/uL (2.02-8.40); PLATELET COUNT 125 10/3/uL (150-400); RBC DISTRIBUTION WIDTH 14.2 % (12.0-16.0); RED CELL COUNT 4.68 10/6/uL (4.0-5.6); WHITE BLOOD CELLS 7.5 10/3/uL (4.5-10.5)
[2017-02-15 07:05] LABS: HEMATOCRIT 42.6 % (36.0-48.0)
[2017-02-15 07:06] LABS: MANUAL DIFF NO %
[2017-02-15 07:15] LABS: BUN (BLOOD UREA NITROGEN) 19 MG/DL (6-23); CALCIUM, SERUM 8.9 MG/DL (8.5-10.4); CHLORIDE, SERUM 101 MMOL/L (96-112); CO2 (CARBON DIOXIDE) 29 MMOL/L (24-34); GFR AFRICAN AMERICAN 70 ML/MIN (>=60); GFR NON AFRICAN AMERICAN 61 ML/MIN (>=60); GLUCOSE, SERUM 165 MG/DL (60-99); POTASSIUM, SERUM 3.9 MMOL/L (3.5-5.3); SODIUM, SERUM 141 MMOL/L (135-148)
[2017-02-15 23:31] LABS: BASOPHILS 0 %; EOSINOPHILS 0.1 %; EOSINOPHILS ABSOLUTE 0.01 10/3/uL (0.0-0.53); HEMATOCRIT 42.3 % (36.0-48.0); HEMOGLOBIN 14.1 g/dL (12.0-16.0); IMMATURE GRANULOCYTES 0.3 %; IMMATURE GRANULOCYTES ABSOLUTE 0.03 10/3/uL (0.0-0.11); LYMPHOCYTES 4.8 %; LYMPHOCYTES ABSOLUTE 0.49 10/3/uL (0.67-4.30); MEAN CORPUS HGB CONC 33.3 g/dL (32.0-36.0); MEAN CORPUSCULAR HEMOGLOB 29.7 pg (26.0-34.0); MEAN CORPUSCULAR VOLUME 89.1 fL (80-100); MEAN PLATELET VOLUME 10.3 fL (9.2-13.0); MONOCYTES 1.1 %; MONOCYTES ABSOLUTE 0.11 10/3/uL (0.21-1.20); NEUTROPHILS 93.7 %; NEUTROPHILS ABSOLUTE 9.61 10/3/uL (2.02-8.40); PLATELET COUNT 124 10/3/uL (150-400); RBC DISTRIBUTION WIDTH 14.2 % (12.0-16.0); RED CELL COUNT 4.75 10/6/uL (4.0-5.6); WHITE BLOOD CELLS 10.3 10/3/uL (4.5-10.5)
[2017-02-15 23:37] LABS: MANUAL DIFF NO %
[2017-02-15 23:43] LABS: PARTIAL THROMBO TIME 43.1 SEC (22.5-37.2)
[2017-02-15 23:44] LABS: INTERNATIONAL NORMAL RATI 3.6 UNITS (-); PROTIME (NOT ORD) 35.5 SEC (12.0-14.5)
[2017-02-15 23:56] LABS: A/G RATIO 0.7 (0.7-1.9); ALBUMIN 3.3 G/DL (3.5-5.0); ALKALINE PHOSPHATASE 93 U/L (45-117); CALCIUM, SERUM 8.7 MG/DL (8.5-10.4); CHLORIDE, SERUM 94 MMOL/L (96-112); CO2 (CARBON DIOXIDE) 28 MMOL/L (24-34); GFR AFRICAN AMERICAN 56 ML/MIN (>=60); GFR NON AFRICAN AMERICAN 49 ML/MIN (>=60); GLOBULIN 4.8 G/DL (2.5-4.1); POTASSIUM, SERUM 4.4 MMOL/L (3.5-5.3); SGOT(AST) 18 U/L (5-40); SGPT(ALT) 17 U/L (5-65); TOTAL BILIRUBIN 1.6 MG/DL (0-1.2); TOTAL PROTEIN 8.1 G/DL (6.0-8.5); TROPONIN I 0.03 NG/ML (<0.05)
[2017-02-16 00:01] LABS: BUN (BLOOD UREA NITROGEN) 28 MG/DL (6-23); GLUCOSE, SERUM 329 MG/DL (60-99); PHOSPHORUS, SERUM 1.7 MG/DL (2.5-4.5); SODIUM, SERUM 132 MMOL/L (135-148)
[2017-02-16 07:17] LABS: BASOPHILS 0 %; EOSINOPHILS 0 %; HEMATOCRIT 41.4 % (36.0-48.0); HEMOGLOBIN 13.8 g/dL (12.0-16.0); IMMATURE GRANULOCYTES 0.3 %; IMMATURE GRANULOCYTES ABSOLUTE 0.03 10/3/uL (0.0-0.11); LYMPHOCYTES 5.1 %; LYMPHOCYTES ABSOLUTE 0.48 10/3/uL (0.67-4.30); MEAN CORPUS HGB CONC 33.3 g/dL (32.0-36.0); MEAN CORPUSCULAR HEMOGLOB 29.7 pg (26.0-34.0); MEAN PLATELET VOLUME 10.5 fL (9.2-13.0); MONOCYTES 1.1 %; NEUTROPHILS 93.5 %; NEUTROPHILS ABSOLUTE 8.78 10/3/uL (2.02-8.40); PLATELET COUNT 130 10/3/uL (150-400); RBC DISTRIBUTION WIDTH 13.9 % (12.0-16.0); RED CELL COUNT 4.65 10/6/uL (4.0-5.6); WHITE BLOOD CELLS 9.4 10/3/uL (4.5-10.5)
[2017-02-16 07:24] LABS: BUN (BLOOD UREA NITROGEN) 24 MG/DL (6-23); CALCIUM, SERUM 9.3 MG/DL (8.5-10.4); CHLORIDE, SERUM 100 MMOL/L (96-112); CO2 (CARBON DIOXIDE) 26 MMOL/L (24-34); GFR AFRICAN AMERICAN 63 ML/MIN (>=60); GFR NON AFRICAN AMERICAN 54 ML/MIN (>=60); GLUCOSE, SERUM 321 MG/DL (60-99); POTASSIUM, SERUM 4.6 MMOL/L (3.5-5.3); SODIUM, SERUM 134 MMOL/L (135-148)
[2017-02-16 07:30] LABS: MANUAL DIFF NO %
[2017-02-16 08:26] LABS: PROCALCITONIN <0.05 ng/mL (<0.5)
[2017-02-16 11:59] LABS: ALLENS TEST Pos; BE (BASE EXCESS) 4.9 MEQ/L (0 +/- 2.5); CARBOXYHEMOGLOBIN 0.7 % (0-3); DEVICE NC; HCO3 (ACTUAL BICARBONATE) 29.4 MEQ/L (23-27); HEMOBLOGIN CONTENT 15.2 G/DL (12-16); INSTRUMENT SERIAL # 11843; METHEMOGLOBIN 0.4 % (0-3); O2 CONTENT 20.3 VOL% (18-24); PCO2 (CO2 TENSION) 43 MMHG (35-45); PO2 (O2 TENSION) 82 MMHG (79-93); SAMPLE Arterial; pH 7.45 (7.37-7.43)
[2017-02-16 13:14] LABS: ASCORBIC ACID (UR NOT ORDER) NEG (NEG); BILIRUBIN, URINE NEGATIVE (NEG); KETONE, URINE NEGATIVE (NEG); LEUKOCYTE ESTERASE(NOT OR NEG (NEG); WBC (NOT ORDERED) (RFLEX) < 1 (0-5)
[2017-02-17 05:41] LABS: BASOPHILS 0.1 %; BASOPHILS ABSOLUTE 0.01 10/3/uL (0.0-0.16); EOSINOPHILS 0 %; HEMATOCRIT 42.2 % (36.0-48.0); IMMATURE GRANULOCYTES 0.3 %; IMMATURE GRANULOCYTES ABSOLUTE 0.04 10/3/uL (0.0-0.11); LYMPHOCYTES 4.2 %; LYMPHOCYTES ABSOLUTE 0.65 10/3/uL (0.67-4.30); MEAN CORPUS HGB CONC 33.2 g/dL (32.0-36.0); MEAN CORPUSCULAR HEMOGLOB 29.7 pg (26.0-34.0); MEAN CORPUSCULAR VOLUME 89.6 fL (80-100); MEAN PLATELET VOLUME 10.7 fL (9.2-13.0); MONOCYTES 2.1 %; MONOCYTES ABSOLUTE 0.33 10/3/uL (0.21-1.20); NEUTROPHILS 93.3 %; NEUTROPHILS ABSOLUTE 14.46 10/3/uL (2.02-8.40); PLATELET COUNT 131 10/3/uL (150-400); RBC DISTRIBUTION WIDTH 14.1 % (12.0-16.0); RED CELL COUNT 4.71 10/6/uL (4.0-5.6)
[2017-02-17 05:45] LABS: WHITE BLOOD CELLS 15.5 10/3/uL (4.5-10.5)
[2017-02-17 05:46] LABS: MANUAL DIFF NO %
[2017-02-17 06:08] LABS: C-REACTIVE PROTEIN < 2.9 MG/L (<8.0)
[2017-02-17 06:17] LABS: CALCIUM, SERUM 9.2 MG/DL (8.5-10.4); CHLORIDE, SERUM 98 MMOL/L (96-112); CO2 (CARBON DIOXIDE) 27 MMOL/L (24-34); CREATININE 1.29 MG/DL (0.55-1.02); FREE T4 1.11 NG/DL (0.76-1.46); GFR AFRICAN AMERICAN 52 ML/MIN (>=60); GFR NON AFRICAN AMERICAN 45 ML/MIN (>=60); POTASSIUM, SERUM 4.4 MMOL/L (3.5-5.3); SODIUM, SERUM 135 MMOL/L (135-148)
[2017-02-17 06:18] LABS: BUN (BLOOD UREA NITROGEN) 34 MG/DL (6-23); FOLATE 17.1 NG/ML (>5.2); GLUCOSE, SERUM 248 MG/DL (60-99); ULTRASENSITIVE TSH 0.238 MCIU/ML (0.358-3.740)
[2017-02-17 09:27] LABS: SED RATE 34 MM/HR (0-20)
[2017-02-18 05:03] LABS: BASOPHILS 0 %; EOSINOPHILS 0 %; HEMATOCRIT 42.1 % (36.0-48.0); HEMOGLOBIN 14.3 g/dL (12.0-16.0); IMMATURE GRANULOCYTES 0.2 %; IMMATURE GRANULOCYTES ABSOLUTE 0.03 10/3/uL (0.0-0.11); LYMPHOCYTES 5.2 %; LYMPHOCYTES ABSOLUTE 0.69 10/3/uL (0.67-4.30); MEAN CORPUSCULAR VOLUME 88.4 fL (80-100); MEAN PLATELET VOLUME 10.5 fL (9.2-13.0); MONOCYTES 3.8 %; NEUTROPHILS 90.8 %; NEUTROPHILS ABSOLUTE 12.06 10/3/uL (2.02-8.40); PLATELET COUNT 139 10/3/uL (150-400); RBC DISTRIBUTION WIDTH 14.1 % (12.0-16.0); RED CELL COUNT 4.76 10/6/uL (4.0-5.6); WHITE BLOOD CELLS 13.3 10/3/uL (4.5-10.5)
[2017-02-18 05:06] LABS: MANUAL DIFF NO %
[2017-02-18 05:21] LABS: CHLORIDE, SERUM 98 MMOL/L (96-112); CO2 (CARBON DIOXIDE) 28 MMOL/L (24-34); GFR AFRICAN AMERICAN 47 ML/MIN (>=60); GFR NON AFRICAN AMERICAN 40 ML/MIN (>=60); GLUCOSE, SERUM 224 MG/DL (60-99); POTASSIUM, SERUM 4.5 MMOL/L (3.5-5.3); SODIUM, SERUM 136 MMOL/L (135-148)
[2017-02-18 05:22] LABS: BUN (BLOOD UREA NITROGEN) 46 MG/DL (6-23)
[2017-02-19 06:46] LABS: BASOPHILS 0.1 %; BASOPHILS ABSOLUTE 0.01 10/3/uL (0.0-0.16); EOSINOPHILS 0.5 %; EOSINOPHILS ABSOLUTE 0.05 10/3/uL (0.0-0.53); HEMATOCRIT 44.9 % (36.0-48.0); HEMOGLOBIN 14.9 g/dL (12.0-16.0); IMMATURE GRANULOCYTES 0.3 %; IMMATURE GRANULOCYTES ABSOLUTE 0.03 10/3/uL (0.0-0.11); LYMPHOCYTES 16.1 %; LYMPHOCYTES ABSOLUTE 1.49 10/3/uL (0.67-4.30); MEAN CORPUS HGB CONC 33.2 g/dL (32.0-36.0); MEAN CORPUSCULAR HEMOGLOB 29.4 pg (26.0-34.0); MEAN CORPUSCULAR VOLUME 88.7 fL (80-100); MEAN PLATELET VOLUME 10.3 fL (9.2-13.0); MONOCYTES 9.2 %; MONOCYTES ABSOLUTE 0.85 10/3/uL (0.21-1.20); NEUTROPHILS 73.8 %; PLATELET COUNT 129 10/3/uL (150-400); RBC DISTRIBUTION WIDTH 14.3 % (12.0-16.0); RED CELL COUNT 5.06 10/6/uL (4.0-5.6); WHITE BLOOD CELLS 9.2 10/3/uL (4.5-10.5)
[2017-02-19 06:47] LABS: MANUAL DIFF NO %
[2017-02-19 06:53] LABS: BUN (BLOOD UREA NITROGEN) 44 MG/DL (6-23); CALCIUM, SERUM 8.8 MG/DL (8.5-10.4); CHLORIDE, SERUM 98 MMOL/L (96-112); CO2 (CARBON DIOXIDE) 34 MMOL/L (24-34); CREATININE 1.23 MG/DL (0.55-1.02); GFR AFRICAN AMERICAN 55 ML/MIN (>=60); GFR NON AFRICAN AMERICAN 47 ML/MIN (>=60); GLUCOSE, SERUM 73 MG/DL (60-99); PHOSPHORUS, SERUM 3.3 MG/DL (2.5-4.5); POTASSIUM, SERUM 3.7 MMOL/L (3.5-5.3); SODIUM, SERUM 140 MMOL/L (135-148)
[2017-06-12] MEDS ORDERED: PROAIR HFA INH (21:20)
[2017-06-12] MEDS ORDERED: DUONEB INH (21:20)
[2017-06-12] MEDS ORDERED: X5 PO (21:21)
[2017-06-12] MEDS ORDERED: LIPITOR80 MG PO (21:22)
[2017-06-12] MEDS ORDERED: BUM1 PO (21:22)
[2017-06-12] MEDS ORDERED: LEVOTHYROXIN50 MCG PO (21:23)
[2017-06-12] MEDS ORDERED: PROZAC40 MG PO (21:23)
[2017-06-12] MEDS ORDERED: LANTUS SC ×2 (21:24)
[2017-06-12] MEDS ORDERED: SINGULAIR1 PO (21:25)
[2017-06-12] MEDS ORDERED: MYRBETRIQ50 MG PO (21:26)
[2017-06-12] MEDS ORDERED: NOVOLOG SC (21:26)
[2017-06-12] MEDS ORDERED: MIRAPEX1 MG PO (21:27)
[2017-06-12] MEDS ORDERED: BETAPACE80 PO (21:27)
[2017-06-12] MEDS ORDERED: SPIRO25 PO (21:28)
[2017-06-12] MEDS ORDERED: QVAR80 MCG INH (21:29)
[2017-06-12] MEDS ORDERED: XARELTO20 MG PO (21:29)
[2017-06-12] MEDS ORDERED: METPAKSF PO (21:30)
[2017-06-12] MEDS ORDERED: DORYX100 MG PO (21:41)
[2017-06-12] MEDS ORDERED: FLUCON150 PO (21:42)
[2017-06-12] MEDS ORDERED: CORTOTSUSP OT (21:50)
[2017-06-12] MEDS ORDERED: STERAPRED DS10 MG (21:51)
== END 2017-02-19 16:19 | disposition home health service (06) | DRG 291 ==
LOC: ER 14:51 → 2SO 18:33
PROVIDERS: Hospitalist; Internal Medicine; Nurse Practitioner Family; Psychiatry & Neurology Neurology
DX: I50.33 Acute on chronic diastolic (congestive) heart failure (principal); G93.40 Encephalopathy, unspecified; J96.21 Acute and chronic respiratory failure with hypoxia; Z68.41 Body mass index [BMI] 40.0-44.9, adult; I27.2 Other secondary pulmonary hypertension; E09.65 Drug or chemical induced diabetes mellitus with hyperglycemia; I24.8 Other forms of acute ischemic heart disease; I42.1 Obstructive hypertrophic cardiomyopathy; E66.01 Morbid (severe) obesity due to excess calories; I65.22 Occlusion and stenosis of left carotid artery; J44.9 Chronic obstructive pulmonary disease, unspecified; D63.8 Anemia in other chronic diseases classified elsewhere; J45.909 Unspecified asthma, uncomplicated; E87.70 Fluid overload, unspecified; I11.0 Hypertensive heart disease with heart failure; I25.10 Atherosclerotic heart disease of native coronary artery without angina pectoris; R13.10 Dysphagia, unspecified; G47.33 Obstructive sleep apnea (adult) (pediatric); E78.5 Hyperlipidemia, unspecified; E78.2 Mixed hyperlipidemia; I48.0 Paroxysmal atrial fibrillation; J98.4 Other disorders of lung; R44.1 Visual hallucinations; F32.9 Major depressive disorder, single episode, unspecified; I87.8 Other specified disorders of veins; J32.2 Chronic ethmoidal sinusitis; F41.9 Anxiety disorder, unspecified; Z82.49 Family history of ischemic heart disease and other diseases of the circulatory system; Z88.0 Allergy status to penicillin; Z86.718 Personal history of other venous thrombosis and embolism; Z79.01 Long term (current) use of anticoagulants; Z79.899 Other long term (current) drug therapy; Z79.4 Long term (current) use of insulin; Z95.5 Presence of coronary angioplasty implant and graft; Z88.5 Allergy status to narcotic agent; Z88.1 Allergy status to other antibiotic agents; Z95.2 Presence of prosthetic heart valve
CPT/HCPCS: 36600; 70450; 70496; 70498; 70551; 71010; 80048; 80053; 80076; 81001; 82140; 82607; 82746; 82805; 82962; 83735; 83880; 84100; 84145; 84439; 84443; 84484; 85025; 85610; 85652; 85730; 86140; 93005; 94640; 95816; 95819; 97161-GP; 99285; A9270-GY; G8978-CK-GP; G8979-CJ-GP; G8980-CJ-GP; J2920; Q9967

== ENCOUNTER 2017-03-21 05:19 | Inpatient (IN) | payer MEDICARE, OTHER ==
--- NOTE | ~2017-03-21 | CN ---
Consultation Report [facility] [address] [place]. [address] NAME: LISA REAGAN : 55 STATUS : ADM IN [facility]#: [id number] AGE: 61 ADM/REG DATE : 03/21/17 MR#: [id number] REPORT SERV DATE: 03/23/17 DICTATED BY: DARION SCHULZ DATE: 03/23/17 REPORT STATUS : Draft TRANSCRIBED BY: MODL DATE: 03/23/17 CARDIOLOGY CONSULTATION DATE OF CONSULTATION: HISTORY OF PRESENT ILLNESS: This obese 61-year-old white female was admitted with shaking chills and fever and is being treated for pneumonia with leukocytosis. Her white blood cell count is 19,800, platelet count 124,000, hematocrit 37%. BUN 38 and creatinine 1.12 mg%. She has no chest pain, but has had a previous history of bypass grafting as well as aortic and mitral valve replacements back [place] [address] Benavidez. She sees Dr. 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 We were asked to see her because of some sinus bradycardia that occurred this morning. She is presently in sinus rhythm at 62 per minute. Rhythm strips also revealed multifocal atrial rhythm. MEDICATIONS AT HOME: Include Symbicort, Bumex, Prozac, insulin, Synthroid, mirabegron, and probiotic. She also takes albuterol inhaler therapy and atorvastatin for hyperlipoproteinemia. Xarelto is used for stroke prophylaxis having had previous history of paroxysmal atrial fibrillation. She has no recent stroke or TIA symptoms, but apparently was on a ventilator for quite some time after her valve replacements with bovine devices with no explanation for paralysis with which she has gradually improved over the years. She now walks with a walker. PREVIOUS SURGERIES: Include the above as well as biceps tendon repair and thyroidectomy. ALLERGIES: SHE IS INTOLERANT TO A NUMBER OF AGENTS INCLUDING WARFARIN, PENICILLIN, HEPARIN, LORAZEPAM, VITAMIN B12, FOLIC ACID, ADHESIVE TAPE, LEVAQUIN, HARDWOOD TREES, AND ARTIFICIAL GRAPE FLAVORING. FAMILY HISTORY: Positive for myocardial infarction in her mother. REVIEW OF SYSTEMS: At the present time, she is having no chills or fever and is not short of breath. She has no chest pain and has stable sinus rhythm on the monitor. Admission EKG showed sinus rhythm with left axis deviation, premature atrial contraction, and clockwise rotation of horizontal forces. Review of systems otherwise all negative. PHYSICAL EXAMINATION: VITAL SIGNS: Her blood pressure is 110/60. HEENT: Head is normocephalic. Eyes, PERRLA. Nose, had no epistaxis. SKIN: Clear of ulceration. NECK: Supple. CHEST: Clear. HEART: Had regular rhythm. Grade 1/6 systolic ejection murmur at the base. No diastolic murmurs were heard. Consultation Report [address] [place]. [address] NAME: LISA REAGAN : 55 STATUS : ADM IN [facility]#: [id number] AGE: 61 ADM/REG DATE : 03/21/17 MR#: [id number] REPORT SERV DATE: 03/23/17 DICTATED BY: DARION SCHULZ DATE: 03/23/17 REPORT STATUS : Draft TRANSCRIBED BY: BASSAM DATE: 03/23/17 ABDOMEN: Obese and nontender. EXTREMITIES: Had no clubbing, edema, or cyanosis. NEUROLOGIC: Exam is unremarkable at bed rest. She moves to command and has no focal sensory deficits. She is oriented to time, place, and person. CLINICAL IMPRESSION: 1. Febrile illness-suspected pneumonia with leukocytosis. 2. History of hypertension. 3. History of bradycardia, on sotalol therapy. 4. Hypothyroidism. 5. Status post bypass grafting. 6. Status post bovine aortic and mitral valve replacements four years ago. 7. Asthma/chronic obstructive pulmonary disease. 8. Morbid obesity. 9. History of paroxysmal atrial fibrillation and other atrial arrhythmias. RECOMMENDATIONS: 1. We will hold her sotalol if her heart rate is less than [address] Muniz will see her when he returns to call. She is on Xarelto stroke prophylaxis because of a history of paroxysmal atrial fibrillation. RB/BASSAM Darion Schulz M.D. / [id number] CC: MD FERNANDO Mcclain TERESA J
--- NOTE | ~2017-03-21 | HP ---
History And Physical [place] [address] [place]. [address] NAME: LISA LLANOS : 55 STATUS : ADM IN [facility]#: [id number] AGE: 61 ADM/REG DATE : 03/21/17 MR#: [id number] REPORT SERV DATE: 03/21/17 DICTATED BY: CATHI SHABAZZ DATE: 03/21/17 REPORT STATUS : Draft TRANSCRIBED BY: MODL DATE: 03/21/17 DATE OF ADMISSION: 03/21/2017 CHIEF COMPLAINT: Fevers, chills, and shortness of breath. HISTORY OF PRESENT ILLNESS: Ms. Llanos is a 61-year-old female with a history of hypertension, diabetes type 2, morbid obesity, heart failure with preserved EF, coronary artery disease, status post CABG and asthma, who presented to the hospital with a complaint of worsening shortness of breath. The patient states that for the past couple of weeks that, she has not been feeling well; however, in the last three days, she states that her breathing status progressively worsened. She states that last night, she began to feel very unwell, reports several episodes of nonbilious, nonbloody emesis associated with fevers and chills and worsening shortness of breath. Given these symptoms, the patient decided to present to the emergency room for further evaluation. Upon presentation to the emergency room, preliminary workup included a chest x-ray noted right midzone linear densities, most consistent with atelectasis. Her white count was also elevated and the patient was noted to be hypoxic and required 4 L nasal cannula to maintain a saturation of 91%. Given the above findings, decision was made to admit the patient for further workup and Hospitalist Medicine was consulted to admit the patient. At the time of my evaluation, the patient corroborated the above story. She reported lightheadedness, dizziness, nausea, vomiting, fevers, chills. She denied any sick contacts and reports medication compliance. After reviewing her chest x ray and her lab findings, the patient's history and presentation is most consistent with healthcare-associated pneumonia. The patient was admitted for further management. REVIEW OF SYSTEMS: A 14-point review of system was performed. All systems were negative except as noted in the HPI. PAST MEDICAL HISTORY: 1. Heart failure with preserved EF. 2. Coronary artery disease, status post CABG. 3. Hypertension. 4. Diabetes type 2. 5. Asthma. 6. Hypothyroidism. PAST SURGICAL HISTORY: 1. Aortic and mitral valve repair. 2. Coronary artery bypass graft. 3. Rotator cuff repair. 4. Thyroidectomy at age 3. 5. Breast biopsy. FAMILY HISTORY: Significant for heart disease and cancer. SOCIAL HISTORY: The patient denies any history of tobacco use; however, her parents were History And Physical [address] [address] NAME: LISA LLANOS : 55 STATUS : ADM IN [facility]#: [id number] AGE: 61 ADM/REG DATE : 03/21/17 MR#: [id number] REPORT SERV DATE: 03/21/17 DICTATED BY: CATHI SHABAZZ DATE: 03/21/17 REPORT STATUS : Draft TRANSCRIBED BY: BASSAM DATE: 03/21/17 smokers. She was exposed to secondhand smoke while growing up. The patient is currently . Her is debilitated with multiple sclerosis. She reports no history of alcohol use or illicit drug use. MEDICATIONS: Home medications: 1. Alprazolam 0.5 mg p.o. at bedtime. 2. Atorvastatin 80 mg p.o. at bedtime. 3. Symbicort two puff inhalation twice a day. 4. Bumex 1 mg p.o. every morning. 5. Prozac 40 mg p.o. twice a day. 6. Insulin Lantus 30 units subcu at bedtime. 7. Lantus 20 units subcu daily. 8. Synthroid 50 mcg p.o. every morning. 9. Singulair 10 mg p.o. at bedtime. 10.Pramipexole 1 mg p.o. at bedtime. 11.Xarelto 20 mg p.o. at bedtime. 12.Sotalol 40 mg p.o. twice a day. 13.Spironolactone 25 mg p.o. twice a day. PHYSICAL EXAMINATION: VITAL SIGNS: Vitals on presentation, blood pressure 144/48 with a pulse of 69, respirations 24, O2 saturation 91% on 4 L nasal cannula. GENERAL: The patient lying in bed, in no acute distress, appears stated age, and morbidly obese. HEENT: Normocephalic, atraumatic. Extraocular motors intact. Pupils round and reactive to light and accommodation. Anicteric sclerae. No conjunctival pallor noted. NECK: Full. Trachea midline and symmetric. No thyromegaly noted. No JVD present. No lymphadenopathy noted. CHEST: Nontender to palpation. CARDIOVASCULAR: Positive 3/6 systolic murmur noted in the precordium. Normal S1 and S2. LUNGS: Decreased breath sounds globally secondary to body habitus. Very slight decreased breath sounds more noted in the lung bases bilaterally. ABDOMEN: Obese, protuberant with no pathological striae, nontender, nondistended. Positive bowel sounds. EXTREMITIES: No clubbing or edema noted. Bilateral cyanotic changes noted in lower extremities. NEUROLOGIC: Alert and oriented x3. No focal deficits appreciated. IMAGING: Chest x-ray, impression, right mid zone linear densities most consistent with atelectasis, other findings are similar to previous exam. LABORATORY DATA: WBC 19.0, hemoglobin 12.2, hematocrit 36.7, platelets 128. Sodium 140, potassium 4.2, bicarb 28, BUN 20, creatinine 0.98 with a GFR of 62, glucose 152. BNP 198.5. Blood gas, pH 7.45, pCO2 34, PO2 69. ASSESSMENT/PLAN: 1. Healthcare-associated pneumonia. Based on the history, the patient last admitted in History And Physical [address] [address] NAME: LISA LLANOS : 55 STATUS : ADM IN [facility]#: [id number] AGE: 61 ADM/REG DATE : 03/21/17 MR#: [id number] REPORT SERV DATE: 03/21/17 DICTATED BY: CATHI SHABAZZ DATE: 03/21/17 REPORT STATUS : Draft TRANSCRIBED BY: BASSAM DATE: 03/21/17 the hospital less than thirty days ago. Plan, we will start the patient on empiric antibiotic therapy cefepime 2 g IV q.6 hours and vancomycin 1 g now pharmacy to dose. We will obtain sputum cultures, blood cultures prior to antibiotic initiation. 2. Hypertension, uncontrolled. Start lisinopril 10 mg p.o. daily. 3. Diabetes type 2, uncontrolled, elevated blood glucose on presentation, last A1c 10.1. Review of the patient's home medication notes that the patient is on the total insulin regimen of 50 units per day. We will start the patient on Levemir 30 units b.i.d., NovoLog 10 units premeal t.i.d., sliding scale level 2. We will check A1c. 4. Hypothyroidism, stable, continue home management. 5. Heart failure with preserved EF, compensated, the patient appears euvolemic with no signs of volume overload. Continue home management at this time. 6. Coronary artery disease, status post CABG. The patient currently on high-intensity statin. We will continue statin therapy. 7. History of aortic mitral valve repair. We will monitor. 8. Asthma. We will continue home medications. Start the patient on IV steroids and place the patient on bronchodilator protocol. 9. Morbid obesity. BMI 48.2. 10.Thrombocytopenia, unclear etiology, platelets 128. We will monitor. Greater than one hour spent admitting the patient. JJ/BASSAM Cathi Shabazz MD / [id number] CC: Cathi Shabazz MD
--- NOTE | ~2017-03-21 | DS ---
Discharge Summary [facility] [address] [place]. [address] NAME: LISA REAGAN : 55 STATUS : DIS IN PAT#: [id number] AGE: 61 ADM/REG DATE : 03/21/17 MR#: [id number] REPORT SERV DATE: 03/25/17 DICTATED BY: CATHI SHABAZZ DATE: 03/24/17 REPORT STATUS : Draft TRANSCRIBED BY: MODL DATE: 03/24/17 ADMISSION DATE: 03/21/2017 DISCHARGE DATE: 03/24/2017 Ms Reagan is a 61-year-old female with a history of hypertension, diabetes type 2, morbid obesity, who is currently in the hospital being managed for healthcare-associated pneumonia. For further details please refer to the H and P dictated by me on 03/21/2017. HOSPITAL COURSE: Upon presentation to the hospital, the patient was started on IV vancomycin and IV cefepime for management of healthcare-associated pneumonia. Blood cultures were also obtained and had been followed. Currently, blood cultures are negative; however, status post initiation of therapy the patient quickly reported improvement. The patient has remained afebrile for greater than 48 hours with significant improvement in her respiratory status. Also the patient has a history of heart failure with preserved EF, and atrial fibrillation which is rhythm controlled on sotalol. Yesterday, on 03/23/2017, the patient had an episode of bradycardia with a heart rate less than 55, sotalol was held. Given this finding, Cardiology was consulted for their input as regards to sotalol therapy. Given her history of AFib the patient is already on stroke prophylaxis with Xarelto which she is tolerating well without any evidence of bleeding, also for her healthcare-associated pneumonia. On presentation, her white count was elevated at 19.0 which trended up to 19.9; however, her white count has now trended down to 14.8. This still elevated white count was also complicated by the fact that the patient is on IV steroids just for respiratory symptoms on presentation. Currently, the patient is hemodynamically stable. Her white count is trending down. She has symptomatically improved as she has been afebrile for over 48 hours and significant improvement in her respiratory status and her coughing. Given these improvement and given her ability to tolerate p.o., we will deescalate antibiotic therapy and transition the patient home. Plan is for the patient to complete a seven-day course of antibiotic therapy with Ceftin. Given her hemodynamic stability and resolution of her symptoms the patient will be discharged home today. Plan has been discussed with the patient, who voices understanding and is agreeable with this plan. DISCHARGE DIAGNOSES: 1. Healthcare-associated pneumonia. 2. Hypertension. 3. Bradycardia. 4. Hypothyroidism. 5. Heart failure with preserved ejection fraction. 6. Asthma. 7. Morbid obesity. 8. Atrial fibrillation. DISCHARGE PHYSICAL EXAMINATION: GENERAL: The patient is lying in bed, in no acute distress. Appears stated age, in no acute distress. HEENT: Normocephalic and atraumatic. Extraocular motors intact. Moist oral mucosa. NECK: Trachea midline and symmetric. Obese neck. No thyromegaly noted. CHEST: Nontender to palpation. No scars noted. Discharge Summary [address] [address] NAME: ILSA REAGAN : 55 STATUS : DIS IN PAT#: [id number] AGE: 61 ADM/REG DATE : 03/21/17 MR#: [id number] REPORT SERV DATE: 03/25/17 DICTATED BY: CATHI SHABAZZ DATE: 03/24/17 REPORT STATUS : Draft TRANSCRIBED BY: BASSAM DATE: 03/24/17 CARDIOVASCULAR: Regular rate and rhythm. S1, S2. No murmurs, rubs, or gallops. LUNGS: Decreased breath sounds due to body habitus; however, the patient with normal respiratory effort and equal chest expansion on respiration. ABDOMEN: Obese. Positive bowel sounds. Nontender. Nondistended. EXTREMITIES: No cyanosis, no clubbing, no edema. NEUROLOGIC: Alert and oriented x3. No focal deficits appreciated. DISCHARGE MEDICATIONS: 1. Xanax 0.5 mg p.o. at bedtime. 2. Atorvastatin 80 mg p.o. at bedtime. 3. Bumex 1 mg p.o. every morning. 4. Prozac 40 mg p.o. twice a day. 5. Lantus 30 units subcu at bedtime. 6. Insulin FlexPen sliding scale. 7. Insulin glargine 20 units subcu daily. 8. Levothyroxine 50 mcg p.o. every morning. 9. Singulair 10 mg p.o. at bedtime. 10.Mirabegron 50 mg p.o. every morning. 11.Pramipexole 1 mg p.o. at bedtime. 12.Rivaroxaban 20 mg p.o. at bedtime. 13.Sotalol 40 mg p.o. twice a day to be readdressed by Cardiology. 14.Spironolactone 25 mg p.o. twice a day. 15.Albuterol two puff inhalation four times p.r.n. 16.Symbicort two puff inhalation twice a day. CONSULTANTS: Cardiology, Dr. Rehan Muniz. DISPOSITION: The patient will be discharged home to follow up with primary care physician in five to seven days. ACTIVITY: As tolerated. DIET: Diabetic diet. Greater than 30 minutes were spent coordinating discharge, discussion of care with the patient, providing counseling, dictation of note, writing prescription. JJ/BASSAM Cathi Shabazz MD / [id number] CC: Discharge Summary [address] [address] NAME: LISA REAGAN : 55 STATUS : DIS IN [facility]#: [id number] AGE: 61 ADM/REG DATE : 03/21/17 MR#: [id number] REPORT SERV DATE: 03/25/17 DICTATED BY: CATHI SHABAZZ DATE: 03/24/17 REPORT STATUS : Draft TRANSCRIBED BY: MODOrlin DATE: 03/24/17 MD Tess Mcclain DO
[~2017-03-21 05:19] MED LIST changes: +NOVOPEN SC; +PR25 PO; +PROBIOTIC PO; +T PO
[2017-03-21 05:27] LABS: BASOPHILS 0.1 %; BASOPHILS ABSOLUTE 0.02 10/3/uL (0.0-0.16); EOSINOPHILS 0.2 %; EOSINOPHILS ABSOLUTE 0.03 10/3/uL (0.0-0.53); HEMOGLOBIN 12.2 g/dL (12.0-16.0); IMMATURE GRANULOCYTES 0.3 %; IMMATURE GRANULOCYTES ABSOLUTE 0.06 10/3/uL (0.0-0.11); LYMPHOCYTES 2.4 %; LYMPHOCYTES ABSOLUTE 0.45 10/3/uL (0.67-4.30); MEAN CORPUS HGB CONC 33.2 g/dL (32.0-36.0); MEAN CORPUSCULAR HEMOGLOB 29.1 pg (26.0-34.0); MEAN CORPUSCULAR VOLUME 87.6 fL (80-100); MEAN PLATELET VOLUME 10.4 fL (9.2-13.0); MONOCYTES ABSOLUTE 1.51 10/3/uL (0.21-1.20); PLATELET COUNT 128 10/3/uL (150-400); RBC DISTRIBUTION WIDTH 14.6 % (12.0-16.0); RED CELL COUNT 4.19 10/6/uL (4.0-5.6)
[2017-03-21 05:34] LABS: ER CBC TAT 0 Hrs 15 Mins
[2017-03-21 05:35] LABS: HEMATOCRIT 36.7 % (36.0-48.0); MANUAL DIFF NO %
[2017-03-21 05:36] LABS: INTERNATIONAL NORMAL RATI 2.6 UNITS (-); PARTIAL THROMBO TIME 36.9 SEC (22.5-37.2)
[2017-03-21 05:38] LABS: PROTIME (NOT ORD) 27.5 SEC (12.0-14.5)
[2017-03-21 05:46] LABS: CALCIUM, SERUM 8.7 MG/DL (8.5-10.4); CHEST PAIN PROFILE TAT 0 Hrs 27 Mins; CHLORIDE, SERUM 107 MMOL/L (96-112); CREATININE 0.98 MG/DL (0.55-1.02); GFR AFRICAN AMERICAN 72 ML/MIN (>=60); GFR NON AFRICAN AMERICAN 62 ML/MIN (>=60); POTASSIUM, SERUM 4.2 MMOL/L (3.5-5.3); SODIUM, SERUM 140 MMOL/L (135-148); TROPONIN I 0.02 NG/ML (<0.05)
[2017-03-21 05:59] LABS: BE (BASE EXCESS) -0.3 MEQ/L (0 +/- 2.5); CARBOXYHEMOGLOBIN 1.5 % (0-3); DEVICE NC; HCO3 (ACTUAL BICARBONATE) 23.1 MEQ/L (23-27); INSTRUMENT SERIAL # 8087; METHEMOGLOBIN 0.2 % (0-3); O2 CONTENT 16.8 VOL% (18-24); OPERATOR ID 17537; PCO2 (CO2 TENSION) 34 MMHG (35-45); PO2 (O2 TENSION) 69 MMHG (79-93); SAMPLE Arterial; pH 7.45 (7.37-7.43)
[2017-03-21 06:02] LABS: BUN (BLOOD UREA NITROGEN) 20 MG/DL (6-23); CO2 (CARBON DIOXIDE) 28 MMOL/L (24-34); GLUCOSE, SERUM 152 MG/DL (60-99)
[2017-03-21 06:21] LABS: ASCORBIC ACID (UR NOT ORDER) NEG (NEG); BILIRUBIN, URINE NEGATIVE (NEG); ER URINALYSIS TAT 0 Hrs 08 Mins; KETONE, URINE NEGATIVE (NEG); LEUKOCYTE ESTERASE(NOT OR NEG (NEG); NITRITE (URINE) NEG (NEG); WBC (NOT ORDERED) (RFLEX) 2 (0-5)
[2017-03-21 06:49] LABS: B NATRIURETIC PEPTIDE (BNP) 198.5 PG/ML (< 100.0)
[2017-03-21] MEDS ORDERED: LANTUS SC (07:55)
[2017-03-21 11:07] LABS: CHOL/HDL RATIO(NOT ORDER) 1.9 (0-5); CHOLESTEROL 95 MG/DL (< 200); FREE T4 1.22 NG/DL (0.76-1.46); HDL CHOLESTEROL 50 MG/DL (> 49); LDL CHOLESTEROL 35 MG/DL (< 130); NON-HDL CHOLESTEROL 45 MG/DL (< 160); TRIGLYCERIDE 52 MG/DL (< 150)
[2017-03-21 11:21] LABS: PROCALCITONIN 0.06 ng/mL (<0.5)
[2017-03-21 14:24] LABS: GLYCOHEMOGLOBIN (HbA1c) 7.3 % (4.7-6.1)
[2017-03-22 05:15] LABS: BASOPHILS 0 %; EOSINOPHILS 0 %; HEMATOCRIT 36.2 % (36.0-48.0); HEMOGLOBIN 11.8 g/dL (12.0-16.0); IMMATURE GRANULOCYTES 0.3 %; IMMATURE GRANULOCYTES ABSOLUTE 0.06 10/3/uL (0.0-0.11); LYMPHOCYTES 2.9 %; LYMPHOCYTES ABSOLUTE 0.55 10/3/uL (0.67-4.30); MANUAL DIFF NO %; MEAN CORPUS HGB CONC 32.6 g/dL (32.0-36.0); MEAN CORPUSCULAR HEMOGLOB 29.4 pg (26.0-34.0); MEAN PLATELET VOLUME 10.7 fL (9.2-13.0); MONOCYTES 2.4 %; MONOCYTES ABSOLUTE 0.45 10/3/uL (0.21-1.20); NEUTROPHILS 94.4 %; NEUTROPHILS ABSOLUTE 17.98 10/3/uL (2.02-8.40); PLATELET COUNT 114 10/3/uL (150-400); RBC DISTRIBUTION WIDTH 14.2 % (12.0-16.0); RED CELL COUNT 4.02 10/6/uL (4.0-5.6)
[2017-03-22 05:34] LABS: A/G RATIO 0.7 (0.7-1.9); ALBUMIN 2.9 G/DL (3.5-5.0); CALCIUM, SERUM 8.8 MG/DL (8.5-10.4); CHLORIDE, SERUM 104 MMOL/L (96-112); CO2 (CARBON DIOXIDE) 24 MMOL/L (24-34); GFR AFRICAN AMERICAN 63 ML/MIN (>=60); GFR NON AFRICAN AMERICAN 54 ML/MIN (>=60); POTASSIUM, SERUM 4.2 MMOL/L (3.5-5.3); SGOT(AST) 14 U/L (5-40); SGPT(ALT) 14 U/L (5-65); SODIUM, SERUM 138 MMOL/L (135-148); TOTAL PROTEIN 6.9 G/DL (6.0-8.5)
[2017-03-22 05:35] LABS: ALKALINE PHOSPHATASE 76 U/L (45-117); BUN (BLOOD UREA NITROGEN) 30 MG/DL (6-23); GLUCOSE, SERUM 276 MG/DL (60-99); TOTAL BILIRUBIN 1.1 MG/DL (0-1.2)
[2017-03-23 05:16] LABS: BASOPHILS 0 %; EOSINOPHILS 0 %; HEMATOCRIT 37.3 % (36.0-48.0); HEMOGLOBIN 11.9 g/dL (12.0-16.0); IMMATURE GRANULOCYTES 0.3 %; IMMATURE GRANULOCYTES ABSOLUTE 0.05 10/3/uL (0.0-0.11); LYMPHOCYTES 3.1 %; LYMPHOCYTES ABSOLUTE 0.61 10/3/uL (0.67-4.30); MEAN CORPUS HGB CONC 31.9 g/dL (32.0-36.0); MEAN CORPUSCULAR HEMOGLOB 28.7 pg (26.0-34.0); MEAN CORPUSCULAR VOLUME 90.1 fL (80-100); MEAN PLATELET VOLUME 10.4 fL (9.2-13.0); MONOCYTES 4.1 %; MONOCYTES ABSOLUTE 0.81 10/3/uL (0.21-1.20); NEUTROPHILS 92.5 %; NEUTROPHILS ABSOLUTE 18.29 10/3/uL (2.02-8.40); PLATELET COUNT 124 10/3/uL (150-400); RBC DISTRIBUTION WIDTH 14.3 % (12.0-16.0); RED CELL COUNT 4.14 10/6/uL (4.0-5.6); WHITE BLOOD CELLS 19.8 10/3/uL (4.5-10.5)
[2017-03-23 05:18] LABS: MANUAL DIFF NO %
[2017-03-23 05:33] LABS: A/G RATIO 0.7 (0.7-1.9); ALBUMIN 2.8 G/DL (3.5-5.0); ALKALINE PHOSPHATASE 75 U/L (45-117); CALCIUM, SERUM 8.7 MG/DL (8.5-10.4); CHLORIDE, SERUM 105 MMOL/L (96-112); CO2 (CARBON DIOXIDE) 25 MMOL/L (24-34); CREATININE 1.12 MG/DL (0.55-1.02); GFR AFRICAN AMERICAN 61 ML/MIN (>=60); GFR NON AFRICAN AMERICAN 53 ML/MIN (>=60); GLOBULIN 4.2 G/DL (2.5-4.1); GLUCOSE, SERUM 263 MG/DL (60-99); POTASSIUM, SERUM 4.7 MMOL/L (3.5-5.3); SGOT(AST) 22 U/L (5-40); SGPT(ALT) 17 U/L (5-65); SODIUM, SERUM 134 MMOL/L (135-148); TOTAL BILIRUBIN 0.7 MG/DL (0-1.2)
[2017-03-23 05:34] LABS: BUN (BLOOD UREA NITROGEN) 38 MG/DL (6-23)
[2017-03-24 04:16] LABS: BASOPHILS 0 %; EOSINOPHILS 0 %; IMMATURE GRANULOCYTES 0.3 %; IMMATURE GRANULOCYTES ABSOLUTE 0.04 10/3/uL (0.0-0.11); LYMPHOCYTES 3.2 %; LYMPHOCYTES ABSOLUTE 0.47 10/3/uL (0.67-4.30); MANUAL DIFF NO %; MEAN CORPUS HGB CONC 32.5 g/dL (32.0-36.0); MEAN CORPUSCULAR HEMOGLOB 29.2 pg (26.0-34.0); MEAN CORPUSCULAR VOLUME 89.9 fL (80-100); MEAN PLATELET VOLUME 10.4 fL (9.2-13.0); MONOCYTES 3.6 %; MONOCYTES ABSOLUTE 0.54 10/3/uL (0.21-1.20); NEUTROPHILS 92.9 %; NEUTROPHILS ABSOLUTE 13.79 10/3/uL (2.02-8.40); PLATELET COUNT 133 10/3/uL (150-400); RBC DISTRIBUTION WIDTH 14.4 % (12.0-16.0); RED CELL COUNT 4.45 10/6/uL (4.0-5.6); WHITE BLOOD CELLS 14.8 10/3/uL (4.5-10.5)
[2017-03-24 04:34] LABS: A/G RATIO 0.7 (0.7-1.9); ALBUMIN 2.9 G/DL (3.5-5.0); ALKALINE PHOSPHATASE 80 U/L (45-117); BUN (BLOOD UREA NITROGEN) 35 MG/DL (6-23); CALCIUM, SERUM 8.8 MG/DL (8.5-10.4); CHLORIDE, SERUM 105 MMOL/L (96-112); CO2 (CARBON DIOXIDE) 32 MMOL/L (24-34); CREATININE 1.06 MG/DL (0.55-1.02); GFR AFRICAN AMERICAN 66 ML/MIN (>=60); GFR NON AFRICAN AMERICAN 57 ML/MIN (>=60); GLOBULIN 4.2 G/DL (2.5-4.1); GLUCOSE, SERUM 310 MG/DL (60-99); POTASSIUM, SERUM 5.1 MMOL/L (3.5-5.3); SGOT(AST) 17 U/L (5-40); SGPT(ALT) 23 U/L (5-65); SODIUM, SERUM 138 MMOL/L (135-148); TOTAL BILIRUBIN 0.8 MG/DL (0-1.2); TOTAL PROTEIN 7.1 G/DL (6.0-8.5)
[2017-03-24 06:01] LABS: PROCALCITONIN 0.27 ng/mL (<0.5)
[2017-03-24] MEDS ORDERED: CEFT5 PO (11:36)
[2017-06-12] MEDS ORDERED: PROAIR HFA INH (21:20)
[2017-06-12] MEDS ORDERED: DUONEB INH (21:20)
[2017-06-12] MEDS ORDERED: X5 PO (21:21)
[2017-06-12] MEDS ORDERED: LIPITOR80 MG PO (21:22)
[2017-06-12] MEDS ORDERED: BUM1 PO (21:22)
[2017-06-12] MEDS ORDERED: PROZAC40 MG PO (21:23)
[2017-06-12] MEDS ORDERED: LEVOTHYROXIN50 MCG PO (21:23)
[2017-06-12] MEDS ORDERED: LANTUS SC ×2 (21:24)
[2017-06-12] MEDS ORDERED: SINGULAIR1 PO (21:25)
[2017-06-12] MEDS ORDERED: NOVOLOG SC (21:26)
[2017-06-12] MEDS ORDERED: MYRBETRIQ50 MG PO (21:26)
[2017-06-12] MEDS ORDERED: MIRAPEX1 MG PO (21:27)
[2017-06-12] MEDS ORDERED: BETAPACE80 PO (21:27)
[2017-06-12] MEDS ORDERED: SPIRO25 PO (21:28)
[2017-06-12] MEDS ORDERED: XARELTO20 MG PO (21:29)
[2017-06-12] MEDS ORDERED: QVAR80 MCG INH (21:29)
[2017-06-12] MEDS ORDERED: METPAKSF PO (21:30)
[2017-06-12] MEDS ORDERED: DORYX100 MG PO (21:41)
[2017-06-12] MEDS ORDERED: FLUCON150 PO (21:42)
[2017-06-12] MEDS ORDERED: CORTOTSUSP OT (21:50)
[2017-06-12] MEDS ORDERED: STERAPRED DS10 MG (21:51)
== END 2017-03-24 17:16 | disposition home or self-care (01) | DRG 194 ==
LOC: ER 05:19 → 2SO 08:15 → 6NO 09:23
PROVIDERS: Emergency Medicine; Hospitalist
DX: J18.9 Pneumonia, unspecified organism (principal); I50.32 Chronic diastolic (congestive) heart failure; D69.6 Thrombocytopenia, unspecified; I11.0 Hypertensive heart disease with heart failure; Z68.42 Body mass index [BMI] 45.0-49.9, adult; E11.65 Type 2 diabetes mellitus with hyperglycemia; J45.909 Unspecified asthma, uncomplicated; Y95 Nosocomial condition; E89.0 Postprocedural hypothyroidism; R00.1 Bradycardia, unspecified; E66.01 Morbid (severe) obesity due to excess calories; E78.5 Hyperlipidemia, unspecified; I25.10 Atherosclerotic heart disease of native coronary artery without angina pectoris; I48.0 Paroxysmal atrial fibrillation; D72.829 Elevated white blood cell count, unspecified; T44.7X5A Adverse effect of beta-adrenoreceptor antagonists, initial encounter; Z79.01 Long term (current) use of anticoagulants; Z95.1 Presence of aortocoronary bypass graft; Z95.3 Presence of xenogenic heart valve; Z79.4 Long term (current) use of insulin; Z77.22 Contact with and (suspected) exposure to environmental tobacco smoke (acute) (chronic); Z88.0 Allergy status to penicillin; Z88.8 Allergy status to other drugs, medicaments and biological substances; Z91.048 Other nonmedicinal substance allergy status; Z88.1 Allergy status to other antibiotic agents; Z91.018 Allergy to other foods
CPT/HCPCS: 36600; 71010; 80048; 80053; 80061; 81001; 82805; 82962; 83036; 83605; 83735; 83880; 84145; 84439; 84443; 84484; 85025; 85610; 85730; 87040; 93005; 94640; 96374; 96375; 99291; A9270-GY; J0456; J0692; J2405; J2920; J2930; J3370; J3475